=== PATIENT | female | born 1985 | race Two or more races ===

== ENCOUNTER 2017-02-24 20:23 | Emergency (ER) | payer MEDICAID, OTHER | END 2017-02-24 21:26 | disposition home or self-care (01) | LOC: ED 20:23 | DX: S16.1XXA Strain of muscle, fascia and tendon at neck level, initial encounter (principal); S39.012A Strain of muscle, fascia and tendon of lower back, initial encounter; V43.52XA Car driver injured in collision with other type car in traffic accident, initial encounter; Y92.410 Unspecified street and highway as the place of occurrence of the external cause ==